=== PATIENT | female | born 1980 | race Caucasian/White ===

== ENCOUNTER 2020-07-04 15:14 | Emergency (ER) | payer BC, SELFPAY ==
--- NOTE | ~2020-07-04 | CT_ITS ---
EXAMINATION: CT abdomen pelvis w con DATE: 07/04/2020 16:45 INDICATION: Generalized abdominal pain. TECHNIQUE: Computed tomography (CT) of the abdomen and pelvis was performed with 100 mL Omnipaque 350 intravenous contrast. Automated exposure control and iterative reconstruction technique were employe d. The dose-length product was 799.72 mGy-cm. COMPARISON: None. FINDINGS: The visualized portions of the lung bases are clear without pneumonia or pleural effusion. The heart size is normal. No pericardial effusion. There is diffuse hepatic steatosis. The gallbladde r, spleen, pancreas, adrenal glands, and kidneys are normal. There is a 2.9 cm mass in left ovary con taining fat, consistent with a dermoid. There are no dilated loops of bowel. The appendix is not visu alized. There are no dilated loops of bowel. There is no free intraperitoneal fluid. There is thoraco lumbar levoscoliosis and mild spondylosis. IMPRESSION: 1. 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 2. Diffuse hepatic steatosis. Reviewed, dictated and finalized at location A. FING DIRECTOR
[2020-07-04 15:12] VITALS: PULSE 87
[2020-07-04 15:15] VITALS: BP 132/98; PULSE 87; RESP 21; TEMP 36.4; O2SAT 100
[2020-07-04 15:21] LABS: Glucose Point of Care 118 (65-105)
[2020-07-04] MEDS: KETOROLAC 30 MG/ML VIAL (*BKC) 15 MG IV PUSH (15:50)
[2020-07-04] MEDS: DICYCLOMINE HCL INJ 20 MG/2 ML VIAL IM (15:50)
--- NOTE | 2020-07-04 15:52 | ED.DIZZY ---
HPI - Dizziness General Chief Complaint: Syncope Stated Complaint: syncopal episode Source: patient Mode of arrival: ambulatory Limitations: no limitations History of Present Illness HPI Narrative: A 39-year-old female comes into the emergency department today with complaints of lightheadedness, dizziness and passing out. Patient states she thinks driving this was diarrhea going on for the last couple of days. She states she has had innumerable amounts of diarrhea over the last couple of days and has lost a lot of fluids. She is here today she went to go stand up got very lightheaded and passed out. She reports witnesses stated that she started jerking around and thought she may have had a seizure. Patient now only complains of generalized abdominal pain. Related Data Home Medications Medication Instructions Recorded Confirmed fluoxetine 40 mg DAILY 07/04/20 metformin 500 mg BID 07/04/20 promethazine 50 mg DAILY 07/04/20 propranolol [Inderal] 60 mg DAILY 07/04/20 Allergies Allergy/AdvReac Type Severity Reaction Status Date / Time metoclopramide [From Reglan] Allergy Vomiting Verified 07/04/20 15:37 prochlorperazine Allergy Vomiting Verified 07/04/20 15:37 [From Compazine] Review of Systems Review of Systems: Narrative: CONSTITUTIONAL: Denies fever, chills, or sweats. EYES: Denies visual changes, redness, or discharge. ENT: Denies rhinorrhea, congestion, sore throat, or otalgia. CARDIOVASCULAR: Denies chest pain, palpitations, or edema. RESPIRATORY: Denies cough or dyspnea. GASTROINTESTINAL: Denies nausea, vomiting, or diarrhea. Endorses generalized abdominal pain GENITOURINARY: Denies dysuria or hematuria. SKIN: Denies rash or itching. MUSCULOSKELETAL: Denies back pain, joint pain, or myalgia. NEUROLOGIC: Denies headache, numbness, dizziness, or weakness. PSYCHIATRIC: Denies anxiety or depression. Exam Narrative: Exam Narrative: GENERAL: Well-appearing, well-nourished, and in no acute distress. HEAD: Normocephalic, atraumatic. EYES: PERRLA and EOMI. ENT: Nares clear, no rhinorrhea or epistaxis. Mucous membranes moist. Oropharynx without tonsillar hypertrophy exudate or other lesions. Bilateral TMs pearly longo nonbulging NECK: Supple. No adenopathy or masses. No carotid bruits or JVD CHEST: Clear to auscultation. No respiratory distress. No wheezes rales or rhonchi HEART: Regular rate and rhythm. No murmur heard. Normal peripheral pulses. ABDOMEN: Soft, generalized tenderness to palpation, nondistended, normal active bowel sounds. EXTREMITIES: Normal range of motion. No edema. SKIN: Warm, dry, no rash. NEURO: No focal deficits. Alert and oriented x3. PSYCH: Normal mood and affect. Course Reevaluation(s) Reevaluation #1: Patient resting comfortably at this time. Did inform her of her work-up and CT findings. Patient's now present states that they had some [place] food on Wednesday night. He states that her daughter immediately got sick after eating it. He was wondering if this may be the patient's cause for her symptoms. Informed him that I think absolutely it could be as there is no other cause apparent. Patient will be given symptomatic medications and discharged home. Time: 17:13 Vital Signs Vital signs: Vital Signs Pulse Rate 87 07/04/20 15:12 Temperature 36.4 C 07/04/20 15:15 Pulse Rate 87 07/04/20 15:15 Respiratory Rate 21 H 07/04/20 15:15 Blood Pressure 132/98 H 07/04/20 15:15 Pulse Oximetry 100 07/04/20 15:15 MDM - Dizziness MDM Narrative Medical decision making narrative: In brief this is a 39-year-old female who presented to the emergency department with complaints of abdominal pain and diarrhea and likely dehydration. Patient was given symptomatic treatment including Toradol, Bentyl, Zofran and IV fluids. Review of her laboratory data was reassuring. Patient CT scan did not show any significant findings other than a dermoid cyst. Patient was made awar
[2020-07-04 16:16] LABS: Basophils Percent Auto 0.2 % (0.2-1.2); Eosinophils Absolute Auto 0.3 K/mm3 (0-0.3); Eosinophils Percent Auto 1.8 % (0-4.4); Hematocrit 39.3 % (37.0-47.0); Hemoglobin 13.3 g/dL (12.0-15.0); Immature Granulocyte Absolute 0.09 K/mm3 (0.00-0.031); Immature Granulocyte Percent A 0.5 % (0-0.5); Lymphocytes Absolute Auto 1.51 K/mm3 (0.9-3.2); Lymphocytes Percent Auto 8.4 % (18.3-44.2); Mean Corpuscular HGB Conc 33.8 g/dl (32-36); Mean Corpuscular Hemoglobin 28.1 pg (26-34); Mean Corpuscular Volume 82.9 fl (80-100); Mean Platelet Volume 10.3 fl (7.4-10.4); Monocytes Absolute Auto 0.9 K/mm3 (0.1-0.6); Monocytes Percent Auto 5.2 % (2.6-8.5); Neutrophils Percent Auto 83.9 % (45.5-73.1); Platelet Count Result 333 k/mm3 (150-375); Red Blood Count 4.74 M/mm3 (4.2-5.4); Red Cell Distribution Width 13.4 % (11.5-14.5); White Blood Count 17.9 K/mm3 (4.5-10.0)
[2020-07-04 16:26] LABS: Alanine Aminotransferase 34 U/L (4-35); Albumin Level 4.7 g/dL (3.5-5.1); Alkaline Phosphatase 86 U/L (38-126); Anion Gap 11 mmol/L (8-16); Aspartate Amino Transferase 23 U/L (14-36); Bilirubin,Total 0.4 mg/dL (0.2-1.3); Blood Urea Nitrogen 13 mg/dL (7-17); Calcium 10.2 mg/dL (8.4-10.2); Carbon Dioxide 21 mmol/L (22-30); Chloride 105 mmol/L (98-107); Estimated CRCL calculation 107 ml/min; Estimated Glomerular Filt Rate > 60; Glucose 127 mg/dL (65-105); Lipase 48 U/L (23-300); Potassium 4.7 mmol/L (3.4-5.0); Sodium 137 mmol/L (137-145)
[2020-07-04] MEDS: LACTATED RINGERS 1,000 ML 999 ML IV CONT (16:31)
[2020-07-04 17:42] LABS: Add Urine Microscopic? NO; Appearance Urine Clear (Clear); Bacteria Urine Trace /hpf; Bilirubin Urine Negative (Negative); Blood Urine Negative (Negative); Color Urine Colorless (Yellow); Glucose Urine UA Negative (Negative); Ketones Urine Negative (Negative); Leukocyte Esterase Ur Negative LEU/UL (Negative); Mucus Urine Rare /lpf; Nitrate Urine Negative (Negative); Protein Urine Negative (Negative); RBC Urine 0-2 /hpf (0-2); Specific Grav Ur > 1.060 (1.001-1.035); Squamous Epithelial Cell Urine Moderate /hpf (Few); Urobilinogen Urine Negative mg/dL (<2.0); WBC Urine 0-3 /hpf
== END 2020-07-04 17:41 | disposition home or self-care (01) ==
PROVIDERS: Emergency Provider Emergency Medicine; PCP Internal Medicine
DX: R55 Syncope and collapse (principal); E86.0 Dehydration; R19.7 Diarrhea, unspecified; D27.1 Benign neoplasm of left ovary; K76.0 Fatty (change of) liver, not elsewhere classified; Z79.84 Long term (current) use of oral hypoglycemic drugs
CPT/HCPCS: 36415; 74177; 80053; 81003; 81025; 83690; 85025; 96361; 96372; 96374; 99284; J0500; J1885; J7120; Q9967